=== PATIENT | male | born 1940 | race Caucasian/White ===

== ENCOUNTER → 2020-07-22 13:27 | Outpatient (BNVA) | payer MEDICARE, SELFPAY | PROVIDERS: PCP Family Medicine; Visit Provider Urology | DX: C61 Malignant neoplasm of prostate (principal) | CPT/HCPCS: Q3014 ==

== ENCOUNTER → 2020-10-15 13:25 | Outpatient (BNVA) | payer MEDICARE, SELFPAY | PROVIDERS: PCP Family Medicine; Visit Provider Urology | DX: D17.9 Benign lipomatous neoplasm, unspecified (principal); C61 Malignant neoplasm of prostate | CPT/HCPCS: Q3014 ==

== ENCOUNTER 2021-01-11 09:51 | Outpatient (REF) | payer MEDICARE, SELFPAY ==
--- NOTE | ~2021-01-11 | US_ITS ---
EXAMINATION: US RETROPERITONEAL LIMITED (RENAL ONLY) CLINICAL INFORMATION: Calculus of kidney. COMPARISON: Renal ultrasound 07/24/2017. CT abdomen and pelvis 08/12/2015. TECHNIQUE: Real-time imaging of the kidneys. FINDINGS: RIGHT KIDNEY: 11.1 x 4.7 x 4.9 cm (SAG x AP x TRV). The kidney is normal in size, contour, and echogenicity. Renal cortical thickness is normal. No renal calculi or hydronephrosis. Lower pole simple cyst measuring 0.9 cm. Findings are not significantly changed and not clinically significant. LEFT KIDNEY: 11.0 x 5.2 x 5.0 cm (SAG x AP x TRV). The kidney is normal in size, contour, and echogenicity. Renal cortical thickness is normal. No renal calculi or hydronephrosis. Upper pole echogenic/heterogeneous ovoid focus measuring 3.0 x 2.2 x 3.1 cm. Findings are similar when compared to the ultrasound dated 07/24/2017 and abdomen/pelvis dated 08/12/2015. US/US renal BI IMPRESSION: 1. Stable left renal parenchymal lesion measuring up to 3 cm, not significantly changed when compared to prior examinations. 2. No new renal parenchymal lesion.
== END 2021-01-11 09:52 | disposition home or self-care (01) ==
LOC: HO.US 09:51
PROVIDERS: PCP Family Medicine; Visit Provider Urology
DX: N20.0 Calculus of kidney (principal); C61 Malignant neoplasm of prostate
CPT/HCPCS: 76775

== ENCOUNTER 2021-03-24 11:03 | Outpatient (REF) | payer MEDICARE, SELFPAY ==
[2021-03-24 12:22] LABS: Prostate Specific Antigen 1.52 ng/mL (<0.05-4.0)
== END 2021-03-24 11:04 | disposition home or self-care (01) ==
LOC: HO.LAB 11:03
PROVIDERS: PCP Family Medicine; Visit Provider Urology
DX: Z12.5 Encounter for screening for malignant neoplasm of prostate (principal); C61 Malignant neoplasm of prostate
CPT/HCPCS: 36415; 84153

== ENCOUNTER → 2021-04-08 08:39 | Outpatient (BNVA) | payer MEDICARE, SELFPAY | PROVIDERS: PCP Family Medicine; Visit Provider Urology | DX: C61 Malignant neoplasm of prostate (principal); R31.0 Gross hematuria; R39.15 Urgency of urination | CPT/HCPCS: 99212 ==

== ENCOUNTER → 2021-07-04 13:04 | Outpatient (BNVA) | payer MEDICARE, SELFPAY | PROVIDERS: PCP Family Medicine; Visit Provider Psychiatry & Neurology Neurology | DX: F03.90 Unspecified dementia, unspecified severity, without behavioral disturbance, psychotic disturbance, mood disturbance, and anxiety (principal) | CPT/HCPCS: Q3014 ==